=== PATIENT | female | born 1935 | race Caucasian/White ===

== ENCOUNTER 2023-02-24 19:47 | Emergency (ER) | payer MEDICARE, MEDICAID ==
[2023-02-24 20:42] VITALS: BP 165/85; PULSE 91
[2023-02-24] MEDS: Acetaminophen 500 MG Tab PO ONE (20:50)
[2023-02-24 21:26] LABS: ANION GAP 14.4 mEq/L (7-13); CHLORIDE,CL 102 mmol/L (98-107); SODIUM,NA 142 mmol/L (136-145)
[2023-02-24 21:27] LABS: ESTIMATED GFR 64 mL/min (>=60)
[2023-02-24 21:34] LABS: CORONAVIRUS COVID-19 NAA NEGATIVE (NEGATIVE); RESPIRATORY SYNCYTIAL VIR NAA NEGATIVE (NEGATIVE)
[2023-02-24 22:59] LABS: AMPHETAMINES,URINE NEGATIVE (NEGATIVE); BARBITURATES,URINE NEGATIVE (NEGATIVE); BENZODIAZEPINE,URINE NEGATIVE (NEGATIVE); MDMA (ECSTASY), URINE NEGATIVE (NEGATIVE); METHADONE,URINE NEGATIVE (NEGATIVE); METHAMPHETAMINES,URINE NEGATIVE (NEGATIVE); OPIATES,URINE NEGATIVE (NEGATIVE); OXYCODONE,URINE NEGATIVE (NEGATIVE); PHENCYCLIDINE,URINE NEGATIVE (NEGATIVE); TCA,URINE NEGATIVE (NEGATIVE)
[2023-02-24] MEDS: cefTRIAXone 1 GM, Lidocaine 1% 2.1 ML IM ONE ×2 (23:37)
== END 2023-02-25 00:04 | disposition home or self-care (01) ==
LOC: DL.ED 19:47
DX: S05.11XA Contusion of eyeball and orbital tissues, right eye, initial encounter (principal); S05.12XA Contusion of eyeball and orbital tissues, left eye, initial encounter; N39.0 Urinary tract infection, site not specified; E03.9 Hypothyroidism, unspecified; E78.00 Pure hypercholesterolemia, unspecified; Z79.899 Other long term (current) drug therapy; Z86.16 Personal history of COVID-19; Z86.73 Personal history of transient ischemic attack (TIA), and cerebral infarction without residual deficits; Z20.822 Contact with and (suspected) exposure to COVID-19; W18.30XA Fall on same level, unspecified, initial encounter
CPT/HCPCS: 0241U; 36415; 70450; 72125; 80053; 80305-QW; 80307; 81001; 82150; 83690; 83735; 84443; 84484; 85025; 86140; 87086; 87088; 87186; 93005; 93010; 96372; 99284; A9270-GY; J0696; J3490